=== PATIENT | female | born 1965 | race Two or more races ===

== ENCOUNTER 2019-06-21 17:27 | Emergency (ER) | payer OTHER ==
[~2019-06-21] VITALS: Ht 154.9 cm; Wt 59.1 kg
[~2019-06-21 17:27] MED LIST: INSLAN SQ; METF-960 PO
[2019-06-21 17:45] LABS: GLUCOSE,POINT OF CARE 265 MG/DL (70-110)
[2019-06-21 20:30] VITALS: BP 114/55
== END 2019-06-21 21:07 | disposition left against medical advice (07) ==
LOC: EMS 17:29
DX: T81.49XA Infection following a procedure, other surgical site, initial encounter (principal); L08.9 Local infection of the skin and subcutaneous tissue, unspecified; M86.9 Osteomyelitis, unspecified; E11.9 Type 2 diabetes mellitus without complications; Z87.891 Personal history of nicotine dependence; Z88.0 Allergy status to penicillin; Z79.4 Long term (current) use of insulin; Z79.84 Long term (current) use of oral hypoglycemic drugs